=== PATIENT | male | born 1990 | race Caucasian/White ===

== ENCOUNTER 2019-04-13 11:34 | Emergency (ER) | payer BC ==
[~2019-04-13] VITALS: Ht 182.9 cm; Wt 89.4 kg
[2019-04-13 11:41] VITALS: Ht 182.9 cm; Wt 89.4 kg
[2019-04-13 12:31] VITALS: BP 133/61
== END 2019-04-13 12:31 | disposition home or self-care (01) ==
LOC: ED 11:34
DX: S39.012A Strain of muscle, fascia and tendon of lower back, initial encounter (principal); K60.2 Anal fissure, unspecified; V49.88XA Car occupant (driver) (passenger) injured in other specified transport accidents, initial encounter; Y93.I9 Activity, other involving external motion; Y92.413 State road as the place of occurrence of the external cause; Y99.8 Other external cause status